=== PATIENT | male | born 1955 | race Caucasian/White ===

== ENCOUNTER 2019-10-31 13:10 | Observation (INO) | payer BC ==
[2019-10-31] MEDS ORDERED: Diltiazem 125 MG/25 ML ONE (14:16)
--- NOTE | 2019-10-31 16:15 | HP ---
PRIMARY CARE PHYSICIAN: Dr. Garrett. REASON FOR ADMISSION: Transferred from [facility] for new onset atrial fibrillation. HISTORY OF PRESENT ILLNESS: A 64-year-old male with no past medical history, who went to [facility] for preoperative checkup for left knee replacement, and during that checkup, the patient had EKG, which showed new onset atrial fibrillation. The patient was given metoprolol, and subsequently, he was transferred to our hospital. In the emergency room, his heart rate was in 130s and that is why he was given one dose of Cardizem, and after that, his heart rate was under control. As per report, initially, his heart rate was 144, and after metoprolol 5 mg, his heart rate was in 110s. He was also hypertensive. The patient does not have any nausea, vomiting, dizziness, chest pain, palpitation, shortness of breath, orthopnea, PND, leg swelling, or syncope. The patient denies any similar problem in the past. REVIEW OF SYSTEMS: CONSTITUTIONAL: Negative for weight loss or gain, ability to conduct usual activities. SKIN: Negative for rash, itching. EYES: Negative for double vision, pain. ENT/MOUTH: Negative for nose bleeding, neck stiffness, pain, tenderness. CARDIOVASCULAR: Negative for palpitations, dyspnea on exertion, orthopnea. RESPIRATORY: Negative for shortness of breath, wheezing, cough, hemoptysis, fever or night sweats. GASTROINTESTINAL: Negative for poor appetite, abdominal pain, heartburn, nausea, vomiting, constipation, or diarrhea. GENITOURINARY: Negative for urgency, frequency, dysuria, nocturia. MUSCULOSKELETAL: Negative for pain, swelling. NEUROLOGIC/PSYCHIATRIC: Negative for anxiety, depression. ALLERGY/IMMUNOLOGIC: Negative for skin rash, bleeding tendency. Please see my HPI for pertinent positives and negatives. All other review of systems reviewed and negative except as mentioned in HPI. PAST MEDICAL HISTORY: Reviewed and negative. PAST SURGICAL HISTORY: Knee replacement on the right side, appendicectomy when he was young, back surgery x2, and foot surgery. PAST PSYCHIATRIC HISTORY: Reviewed and negative. SOCIAL HISTORY: The patient drinks alcohol occasionally. He denies any smoking. He denies any other illicit drug abuse. FAMILY HISTORY: No strong family history of premature coronary artery disease, stroke, or cancer. ALLERGIES: NO KNOWN DRUG ALLERGY. EMERGENCY ROOM COURSE: The patient is given metoprolol 5 mg at the [facility] and Cardizem 20 mg IV push in our emergency room. PHYSICAL EXAMINATION: VITAL SIGNS: Currently, blood pressure 116/86, pulse 117 and irregular, respiratory rate 20, temperature 98.5, saturation 96% on room air, and weight 111.13. GENERAL: The patient is currently alert and oriented x3. HEENT: Head, normocephalic and atraumatic. Eyes, pupils are round and reactive to light. ENT, oropharynx within normal limits. Moist mucous membranes. NECK: Supple. No JVD. No meningeal signs of irritation. LUNGS: Clear to auscultation without any rhonchi or rales. CARDIAC: S1 and S2, irregularly irregular. No murmur. No gallop. No rub. ABDOMEN: Soft. Bowel sounds present. Nontender. Nondistended. No organomegaly. No mass. No peritoneal sign. BACK: Unremarkable. No CVA tenderness. EXTREMITIES: Upper extremities, passive movement of all joints are normal. Lower extremities, no edema. Good distal pulsation. No calf tenderness. SKIN: No skin rash. NEUROLOGIC: Nonfocal examination. PSYCHIATRIC: Normal affect. SIGNIFICANT LABORATORY DATA: EKG showing atrial fibrillation with RVR. Blood test report from [facility], I have reviewed and complete unremarkable. ASSESSMENT AND PLAN: 1. New onset atrial fibrillation with variable rate. At this point, Cardiology will be consulted. We will start Lovenox 1 mg/kg subcu twice daily. We will keep him n.p.o. after midnight. If the patient remains in persistently atrial fibrillation, then possibly he may need a transesophageal echocardiography and possible cardioversion. We will obtain echocardiography. We will do serial cardiac enzymes x3. We will check thyroid function test. We will continue with Cardizem p.o., and if heart rate gets very fast, then we will consider p.r.n. basis. 2. Osteoarthritis. The patient is planned for knee replacement on the left side next Monday. We will ask Cardiology to give preoperative clearance. 3. Deep venous thrombosis prophylaxis. The patient is already on full dose of Lovenox therapy. 4. Gastrointestinal prophylaxis. Pepcid 20 mg p.o. b.i.d. CODE STATUS: The patient is full code. The patient's is surrogate decision maker. DISPOSITION PLAN: Based on clinical course, within 24 to 48 hours. Based on Cardiology recommendation. Plan of care extensively discussed with the patient and family member at bedside in the emergency room and answered all their questions. Job ID: [id number]
[2019-10-31 17:17] LABS: Troponin I Less than 0.010 ng/mL (< 0.028)
[2019-10-31] MEDS ORDERED: Sodium Chloride 0.65% Nasal 44 ML BOT EA NARE PRN (17:44)
[2019-10-31] MEDS ORDERED: Loratadine 10 MG TAB PO PRN (17:44)
[2019-10-31] MEDS ORDERED: Ondansetron PF 4 MG/2 ML Vial IVP PRN (17:44)
[2019-10-31] MEDS ORDERED: Acetaminophen 325 MG TAB PO PRN (17:44)
[2019-10-31] MEDS ORDERED: Zolpidem Tartrate 5 MG TAB PO PRN (17:44)
[2019-10-31] MEDS ORDERED: Ondansetron ODT 4 MG TAB PO PRN (17:44)
[2019-10-31] MEDS ORDERED: Bisacodyl 10 MG SUPP PR PRN (17:44)
[2019-10-31] MEDS ORDERED: Senokot S 8.6-50 MG TAB PO PRN (17:44)
[2019-10-31] MEDS ORDERED: Labetalol HCl 100 MG/20 ML VIAL SLOW IVP PRN (17:44)
[2019-10-31] MEDS ORDERED: Loperamide HCl 2 MG CAP PO PRN (17:44)
[2019-10-31] MEDS ORDERED: Diltiazem 125 MG in Sodium Chloride 0.9% 100 ML IVPB PRN (17:44)
[2019-10-31] MEDS ORDERED: Calcium Carbonate 500 MG ChewTAB PO PRN (17:44)
[2019-10-31] MEDS ORDERED: HYDROcodone/Acetaminophen 5/325 mg Tablet PO PRN (17:44)
[2019-10-31] MEDS ORDERED: Guaifenesin DM 100-10/5 ML UDCUP PO PRN (17:44)
[2019-10-31] MEDS ORDERED: Cepastat Lozenges 1 LOZ PO PRN (17:44)
[2019-10-31] MEDS ORDERED: Diabetic Tussin 200 MG/10 ML UDCUP PO PRN (17:44)
[2019-10-31 17:49] VITALS: BMI 31.8
[2019-10-31 19:07] LABS: Troponin I Less than 0.010 ng/mL (< 0.028)
[2019-10-31 19:27] LABS: Bacteria/HPF None Seen HPF (None Seen); Bilirubin Negative (Negative); Blood, Urine Negative (Negative); Clarity Clear (Clear); Glucose, Urine (Dipstick) Normal (Negative); Leukocyte Negative Leu/uL (Negative); Nitrite Negative (Negative); Protein, Urine (Dipstick) Negative (Neg-Trace); RBC/HPF 0-3 HPF (0-3); Squamous Epithelial None Seen HPF (0-3); Urobilinogen Normal mg/dL (Less than 2); WBC/HPF 0-3 HPF (0-3)
[2019-10-31] MEDS: Famotidine 20 MG TAB PO SCH (20:10)
[2019-10-31] MEDS: Enoxaparin Sodium 120 MG/0.8 ML SYRINGE SC SCH (20:10)
[2019-11-01 05:59] LABS: ALT (SGPT) 26 U/L (8-55); AST (SGOT) 19 U/L (5-34); Albumin 3.6 g/dL (3.4-4.8); Alkaline Phosphatase 71 U/L (40-110); Anion Gap 14 mmol/L (10-20); BUN (Urea Nitrogen) 15 mg/dL (8.4-25.7); Bilirubin, Total 1.4 mg/dL (0.2-1.2); Calc. Creatinine Clearance 165 mL/min (70-130); Calcium 9.3 mg/dL (7.8-10.44); Carbon Dioxide 23 mmol/L (23-31); Cardiac Risk 2.8 (Less than 4.5); Chloride 106 mmol/L (98-107); Cholesterol 169 mg/dl (< 200 Desired); Estimated GFR-MDRD Greater than 90; Globulin 2.5 g/dL (2.4-3.5); Glucose 87 mg/dL (80-115); HDL Cholesterol 61 mg/dL (>60 Neg Risk); LDL Cholesterol, Calculated 73 mg/dL; Potassium 4.4 mmol/L (3.5-5.1); Protein, Total 6.1 g/dL (5.8-8.1); Sodium 139 mmol/L (136-145); Triglycerides 174 mg/dL (Less than 150)
[2019-11-01 06:22] LABS: #Basophils 0.1 thou/uL (0.0-0.2); #Eosinphils 0.2 thou/uL (0.0-0.7); #Lymphocytes 2.6 thou/uL (1.20-3.40); #Monocytes 1.1 thou/uL (0.11-0.59); #Neutrophils 4.3 thou/uL (1.40-6.50); %Basophils 0.9 % (0.0-1.0); %Eosinophils 2.9 % (0.0-10.0); %Lymphocytes 31.5 % (21.0-51.0); %Monocytes 12.9 % (0.0-10.0); %Neutrophils 51.8 % (42.0-75.0); Hemoglobin 14.8 g/dL (14.0-18.0); Mean Corpuscular HGB CONC 32.9 g/dL (32.0-36.0); Mean Corpuscular Hemoglobin 30.8 pg (27.0-31.0); Mean Corpuscular Volume 93.5 fL (78.0-98.0); Mean Platelet Volume 7.7 fL (7.4-10.4); Platelet Count 171 thou/uL (130-400); RBC Distribution Width 14.5 % (11.5-14.5); Red Blood Cell (RBC) Count 4.81 mill/uL (4.70-6.10); White Blood Cell (WBC) Count 8.2 thou/uL (4.8-10.8)
[2019-11-01] MEDS: Famotidine 20 MG TAB PO SCH (08:23)
[2019-11-01] MEDS: Enoxaparin Sodium 120 MG/0.8 ML SYRINGE SC SCH (09:00)
[2019-11-01] MEDS ORDERED: Aspirin 325 MG TAB PO SCH (09:00)
[2019-11-01] MEDS ORDERED: PROPOFOL 200 MG/20 ML VIAL ONE (11:19)
--- NOTE | 2019-11-01 11:22 | CON ---
DATE OF CONSULTATION: 11/01/2019 REASON FOR CONSULTATION: Newly diagnosed atrial fibrillation. HISTORY OF PRESENT ILLNESS: Mr. Cheek is a pleasant 64-year-old gentleman. The patient was going for preoperative evaluation for knee replacement. The patient was not aware of his heart racing, did not feel bad, was not short of breath or having chest pain, but the EKG showed an atrial fibrillation, rate of 140. He was referred to the emergency room. He has been brought in for observation. He had tentatively been scheduled for knee replacement next Monday. The patient has no cardiac history. No chest pain, pressure, heaviness, or squeezing. No history of hypertension. No history of coronary artery disease or vascular disease. REVIEW OF SYSTEMS: CONSTITUTIONAL: No significant weight gain or loss. VISION: No changes. HEARING: No changes. PULMONARY: No cough or wheezing. GASTROINTESTINAL: No nausea, vomiting, or diarrhea. SKIN: No rashes. NEUROLOGIC: No unilateral weakness or numbness. PSYCHIATRIC: No unusual depression or anxiety. PHYSICAL EXAMINATION: GENERAL: This is a pleasant 64-year-old man, resting comfortably, in no distress. VITAL SIGNS: Blood pressure 176/79, pulse 85 and irregular. LUNGS: Clear. CARDIAC: Irregularly irregular. ABDOMEN: Soft and nontender. EXTREMITIES: No clubbing or cyanosis. No edema. SKIN: Warm and dry. DIAGNOSTIC STUDIES: EKG did show atrial fibrillation with a rate of 140 beats per minute yesterday, now the rate is about 100. PERTINENT LABORATORY DATA: Bilirubin is 1.4. Triglyceride 174, cholesterol 169, and LDL 73. Potassium is 4.4. ASSESSMENT: 1. Atrial fibrillation with a rapid rate, now rate has improved. 2. Preoperative for knee surgery. PLAN: 1. The patient is on diltiazem for rate control. 2. He is on enoxaparin. 3. We are going to see if we could schedule a transesophageal echo and the cardioversion today. If that cannot be obtained, then we could rate control him and bring him back as an outpatient for the same procedure. Job ID: [id number]
--- NOTE | 2019-11-01 12:05 | PDOC.HOSPP ---
- Subjective Encounter Date: 11/01/19 Encounter Time: 08:30 Subjective: Patient seen and examined. No new complaints. No overnight events - Objective Vital Signs & Weight: Vital Signs (12 hours) Temp Pulse Resp BP Pulse Ox 11/01/19 11:30 97.8 F 76 18 126/64 95 11/01/19 07:58 97.7 F 85 18 176/79 H 97 11/01/19 03:12 97.7 F 116 H 13 135/71 97 Weight Weight 248 lb 1.6 oz I&O: 10/31/19 11/01/19 11/02/19 06:59 06:59 06:59 Intake Total 390 Output Total 350 Balance 40 Result Diagrams: 11/01/19 06:05 11/01/19 05:07 Radiology Reviewed by me: Yes EKG Reviewed by me: Yes Hospitalist ROS - Review of Systems ENT: denies: ear pain, ear discharge, nose pain, nose discharge, nose congestion , mouth pain, mouth swelling, throat pain, throat swelling, other Respiratory: denies: cough, dry, shortness of breath, hemoptysis, SOB with excertion, pleuritic pain, sputum, wheezing, other Cardiovascular: denies: chest pain, palpitations, orthopnea, paroxysmal noc. dyspnea, edema, light headedness, other Gastrointestinal: denies: nausea, vomiting, abdominal pain, diarrhea, constipation, melena, hematochezia, other Genitourinary: denies: dysuria, frequency, incontinence, hematuria, retention, other Musculoskeletal: denies: neck pain, shoulder pain, arm pain, back pain, hand pain, leg pain, foot pain, other - Medication Medications: Active Medications Generic Name Dose Route Start Last Admin Trade Name Hannah PRN Reason Stop Dose Admin Aspirin 325 mg 11/01/19 09:00 11/01/19 08:23 Aspirin PO 325 mg DAILY IRAIS Administration Diltiazem HCl 30 mg 10/31/19 21:00 11/01/19 10:38 Cardizem PO 30 mg ACHS IRAIS Administration Enoxaparin Sodium 110 mg 10/31/19 21:00 11/01/19 09:00 Lovenox SC Not Given 0900,2100 IRAIS Famotidine 20 mg 10/31/19 21:00 11/01/19 08:23 Pepcid PO 20 mg BID IRAIS Administration - Exam General Appearance: NAD, awake alert Eye: PERRL, anicteric sclera ENT: normocephalic atraumatic, no oropharyngeal lesions Neck: supple, symmetric, no JVD Heart: no murmur, no gallops, no rubs, irregular Respiratory: CTAB, no wheezes, no rales, no ronchi Gastrointestinal: soft, non-tender, non-distended, normal bowel sounds Extremities: no cyanosis, no clubbing Skin: normal turgor, no lesions Neurological: no focal deficits Musculoskeletal: normal tone, normal strength Psychiatric: normal affect, normal behavior Hosp A/P (1) New onset atrial fibrillation Code(s): I48.91 - UNSPECIFIED ATRIAL FIBRILLATION Status: Acute (2) Hypertension Code(s): I10 - ESSENTIAL (PRIMARY) HYPERTENSION Status: Acute Qualifiers: Hypertension type: essential hypertension Qualified Code(s): I10 - Essential (primary) hypertension (3) Obesity (BMI 30.0-34.9) Code(s): E66.9 - OBESITY, UNSPECIFIED Status: Chronic - Plan old records reviewed/req, plan discussed w/ family 11/01 cardiology consulted echo done possible cardioversion today continue cardizem and lovenox medication reviewed and continue to provide supportive care
--- NOTE | 2019-11-01 14:44 | OP ---
DATE OF PROCEDURE: 11/01/2019 PROCEDURE PERFORMED: Transesophageal echocardiogram. INDICATION: A 64-year-old gentleman with paroxysmal atrial fibrillation. DESCRIPTION OF PROCEDURE: The patient was taken to the PACU. The patient was sedated by Anesthesiology. A transesophageal probe was placed into the distal esophagus and stomach. Echocardiographic images were obtained. The transesophageal probe was removed. FINDINGS: 1. There appears to be a mild decrease in left ventricular systolic function. 2. Left atrial enlargement. 3. Normal mitral aortic valves. 4. Mild mitral regurgitation. 5. Mild tricuspid regurgitation. 6. No thrombus noted in left atrium or left atrial appendage. 7. Atherosclerotic debris in the descending aorta. IMPRESSION: No formed thrombus in the left atrium or left atrial appendage. Job ID: [id number]
[2019-11-01 16:01] VITALS: BP 122/69; TEMP 97.5
[2019-11-01] MEDS ORDERED: Apixaban 5 MG TAB PO SCH (21:00)
--- NOTE | 2019-11-01 21:07 | OP ---
DATE OF PROCEDURE: 11/01/19 SURGEON: Gaudencio Bernal M.D. PREOPERATIVE DIAGNOSIS: Atrial fibrillation with a rapid rate. PROCEDURE: Cardioversion. The patient is a pleasant 64-year-old gentleman brought to the Recovery Room in the fasting state. He was sedated by anesthesia and given 200 joules direct current synchronized energy and converted to s inus rhythm. CONCLUSIONS: Successful cardioversion.
--- NOTE | 2019-11-02 08:29 | DIS ---
DATE OF ADMISSION: 10/31/2019 DATE OF DISCHARGE: 11/01/2019 PRIMARY CARE PHYSICIAN: [facility] Call admission. DISCHARGE DISPOSITION: Home. PRIMARY DISCHARGE DIAGNOSES: 1. New onset atrial fibrillation. 2. Status post cardioversion converted to sinus rhythm. SECONDARY DISCHARGE DIAGNOSIS: Obesity with BMI 31. PRIMARY PROCEDURE/OPERATION: Cardioversion and transesophageal echocardiography. RADIOLOGICAL INVESTIGATION: Echocardiography showed EF 50% to 55%. SIGNIFICANT LABORATORY DATA: CBC, BMP, LFT normal. Cardiac enzyme negative. LDL 73. TSH 1.15. Urinalysis normal. DISCHARGE MEDICATION: 1. Eliquis 5 mg p.o. b.i.d. 2. Cardizem CD 180 mg p.o. daily. CONTRAINDICATION: None. CODE STATUS: Full code. 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 Bernal was following while in hospital. TEST RESULT PENDING ON DISCHARGE: None. ALLERGIES: PENICILLIN. DISCHARGE PLAN: Posthospital, the patient will follow up with primary care physician and Dr. Bernal in 1 or 2 weeks. HOSPITAL COURSE: A 64-year-old male who was scheduled for left total knee replacement and he had preoperative evaluation at [facility] where he had EKG done which showed atrial fibrillation. The patient was given metoprolol and subsequently, he was transferred to our hospital. The patient never had any atrial fibrillation in the past and he was completely asymptomatic. In our hospital, he was having a slightly high rate and that is why Cardizem bolus was given and subsequently p.o. Cardizem was started and on discharge we changed to Cardizem CD. The patient remained in atrial fibrillation and that is why patient underwent LULY and cardioversion and subsequently he converted to sinus rhythm. The patient is given anticoagulation while in hospital with Lovenox. On discharge, the patient is given Eliquis. The patient will make appointment with primary care physician. The patient will need to go home today. The patient is seen and examined at bedside today. Please see my progress note from that day for more detail. Job ID: [id number]
== END 2019-11-01 16:29 | disposition home or self-care (01) ==
LOC: ERS 13:10 → ERHOLD 16:24 → 2SW 17:49
PROVIDERS: ADMIT Internal Medicine; ATTEND Internal Medicine
PROC: B24BZZ4 Ultrasonography of Heart with Aorta, Transesophageal (ICD-10-PCS; principal; 2019-11-01)
PROC: 5A2204Z Restoration of Cardiac Rhythm, Single (ICD-10-PCS; 2019-11-01)
DX: I48.0 Paroxysmal atrial fibrillation (principal); I08.1 Rheumatic disorders of both mitral and tricuspid valves; I70.0 Atherosclerosis of aorta; I10 Essential (primary) hypertension; M17.12 Unilateral primary osteoarthritis, left knee; E66.9 Obesity, unspecified; Z68.31 Body mass index [BMI] 31.0-31.9, adult; Z88.0 Allergy status to penicillin; Z96.651 Presence of right artificial knee joint
CPT/HCPCS: 36415; 80053; 80061; 81001; 84443; 84484; 85025; 92960; 93005; 93306; 93312; 96372; 96374; G0378; J1650; J2704

== ENCOUNTER 2020-09-07 08:57 | Outpatient (CLI) | payer BC, OTHER ==
[2020-09-07 16:54] LABS: #Basophils 0.1 thou/uL (0.0-0.2); #Eosinphils 0.3 thou/uL (0.0-0.7); #Lymphocytes 2.5 thou/uL (1.20-3.40); #Monocytes 1.1 thou/uL (0.11-0.59); #Neutrophils 4.4 thou/uL (1.40-6.50); %Basophils 1.1 % (0.0-1.0); %Eosinophils 3.3 % (0.0-10.0); %Lymphocytes 29.7 % (21.0-51.0); %Monocytes 13.2 % (0.0-10.0); %Neutrophils 52.7 % (42.0-75.0); Hemoglobin 15.4 g/dL (14.0-18.0); Mean Corpuscular HGB CONC 33.4 g/dL (32.0-36.0); Mean Corpuscular Hemoglobin 32.6 pg (27.0-31.0); Mean Corpuscular Volume 97.7 fL (78.0-98.0); Mean Platelet Volume 8.2 fL (7.4-10.4); Platelet Count 217 thou/uL (130-400); RBC Distribution Width 13.3 % (11.5-14.5); Red Blood Cell (RBC) Count 4.72 mill/uL (4.70-6.10); White Blood Cell (WBC) Count 8.3 thou/uL (4.8-10.8)
[2020-09-07 18:10] LABS: Anion Gap 15 mmol/L (10-20); BUN (Urea Nitrogen) 11 mg/dL (8.4-25.7); Calc. Creatinine Clearance 0 mL/min (70-130); Calcium 8.8 mg/dL (7.8-10.44); Carbon Dioxide 21 mmol/L (23-31); Chloride 105 mmol/L (98-107); Estimated GFR-MDRD Greater than 90; Glucose 69 mg/dL (80-115); Potassium 4.1 mmol/L (3.5-5.1); Sodium 137 mmol/L (136-145)
[2020-09-09 12:10] LABS: SARS-CoV-2 MS2 Positive; SARS-CoV-2 N Gene Negative; SARS-CoV-2 S Gene Negative; SARS-CoV-2 by NAA Not Detected (NotDetected); SARS-CoV-2 orf1ab Negative
== END 2020-09-07 08:58 | disposition home or self-care (01) ==
LOC: LABBT 08:57
PROVIDERS: ATTEND Internal Medicine Cardiovascular Disease
DX: Z01.812 Encounter for preprocedural laboratory examination (principal); I48.91 Unspecified atrial fibrillation; Z20.828 Contact with and (suspected) exposure to other viral communicable diseases
CPT/HCPCS: 80048; 85025; 87635; U0003

== ENCOUNTER 2020-09-10 09:47 | Day surgery (SDC) | payer BC ==
[2020-09-10] MEDS ORDERED: Lidocaine 1% PF 5 ML VIAL ONE (11:39)
[2020-09-10] MEDS ORDERED: PROPOFOL 20 ML ONE (11:39)
[2020-09-10] MEDS ORDERED: Flecainide 50 MG TAB PO SCH (12:15)
--- NOTE | 2020-09-11 13:57 | CCLSPC ---
PROCEDURE: Cardioversion, external. PROCEDURE IN DETAIL: The patient was brought to the recovery room in a fasting state. He was sedated by anesthesia. He was given 200 joules direct current synchronized energy and converted to sinus rhythm. INDICATION: Persistent atrial fibrillation, symptomatic. CONCLUSION: Successful cardioversion. COMPLICATIONS: None. Job ID: [id number]
== END 2020-09-10 12:58 | disposition home or self-care (01) ==
LOC: CCL 09:47
PROVIDERS: ATTEND Internal Medicine Cardiovascular Disease
PROC: 5A2204Z Restoration of Cardiac Rhythm, Single (ICD-10-PCS; principal; 2020-09-10)
DX: I48.19 Other persistent atrial fibrillation (principal); I11.0 Hypertensive heart disease with heart failure; I50.22 Chronic systolic (congestive) heart failure; E78.2 Mixed hyperlipidemia; Z79.01 Long term (current) use of anticoagulants; Z79.899 Other long term (current) drug therapy; Z88.0 Allergy status to penicillin; Z82.49 Family history of ischemic heart disease and other diseases of the circulatory system
CPT/HCPCS: 92960; J2704

== ENCOUNTER 2021-07-20 10:55 | Outpatient (CLI) | payer BC ==
[2021-07-20 12:20] LABS: Hemoglobin 14.4 g/dL (13.5-17.5); Mean Corpuscular HGB CONC 33.8 g/dL (32.0-36.0); Mean Corpuscular Hemoglobin 31.6 pg (27.0-33.0); Mean Corpuscular Volume 93.6 fl (81.2-95.1); Mean Platelet Volume 10.3 fl (7.4-10.4); Platelet Count 187 10x3/uL (150-450); RBC Distribution Width 13.6 % (11.5-14.5); Red Blood Cell (RBC) Count 4.55 10x6/uL (4.32-5.72); White Blood Cell (WBC) Count 9.1 10x3/uL (3.5-10.5)
[2021-07-20 12:44] LABS: Anion Gap 16 mmol/L (10-20); BUN (Urea Nitrogen) 13 mg/dL (8.4-25.7); Calc. Creatinine Clearance 0 mL/min (70-130); Calcium 9.5 mg/dL (7.8-10.44); Carbon Dioxide 22 mmol/L (23-31); Chloride 104 mmol/L (98-107); Glucose 96 mg/dL (80-115); Potassium 4.7 mmol/L (3.5-5.1); Sodium 137 mmol/L (136-145)
[2021-07-21 02:05] LABS: SARS-CoV-2 PCR by NAA Not Detected (NotDetected)
== END 2021-07-20 10:56 | disposition home or self-care (01) ==
LOC: LABBT 10:55
PROVIDERS: ATTEND Neurological Surgery
DX: Z01.812 Encounter for preprocedural laboratory examination (principal); M48.061 Spinal stenosis, lumbar region without neurogenic claudication; Z20.822 Contact with and (suspected) exposure to COVID-19
CPT/HCPCS: 80048; 85027; U0003; U0005

== ENCOUNTER 2021-07-23 06:59 | Day surgery (SDC) | payer BC ==
[2021-07-22 12:50] VITALS: BMI 31.8
[2021-07-23] MEDS ORDERED: ceFAZolin 2 GM/Dextrose 50 ML IVPB ONE (07:23)
[2021-07-23] MEDS ORDERED: Clindamycin/D5W 900 mg/50 ml Premix Bag ONE (08:04)
[2021-07-23] MEDS ORDERED: Levofloxacin 500 mg/D5W 100 ml Premix Bag ONE (08:04)
[2021-07-23] MEDS ORDERED: EPINEPHrine 1 MG/ML AMP ONE (08:33)
[2021-07-23] MEDS ORDERED: Bupivacaine PF 0.5% 30 ML VIAL ONE (08:33)
[2021-07-23] MEDS ORDERED: Fentanyl 100 MCG/2 ML VIAL ONE ×3 (08:51→11:00)
[2021-07-23] MEDS ORDERED: Ketorolac Tromethamine 30 MG/ML VIAL ONE (08:53)
[2021-07-23] MEDS ORDERED: Ondansetron PF 4 MG/2 ML Vial ONE ×2 (08:53→15:01)
[2021-07-23] MEDS ORDERED: Lidocaine 1% PF 5 ML VIAL ONE (08:53)
[2021-07-23] MEDS ORDERED: PROPOFOL 200 MG/20 ML VIAL ONE (08:53)
[2021-07-23] MEDS ORDERED: Glycopyrrolate 0.2 MG/ML 5 ML SYRINGE ONE (08:53)
[2021-07-23] MEDS ORDERED: PHENYLEPHRINE-NS 100 MCG/ML 10 ML SYRINGE ONE (08:53)
[2021-07-23] MEDS ORDERED: Rocuronium Bromide 10 MG/ML (10ML VIAL) ONE (08:53)
[2021-07-23] MEDS ORDERED: Dexamethasone 20 MG/5 ML VIAL ONE (08:53)
[2021-07-23] MEDS ORDERED: Tamsulosin HCl 0.4 MG CAP ONE (11:00)
[2021-07-23] MEDS ORDERED: Cyclobenzaprine 10 MG TAB ONE (15:58)
== END 2021-07-23 17:50 | disposition home or self-care (01) ==
LOC: SDC 06:59
PROVIDERS: ATTEND Neurological Surgery
PROC: 01NB0ZZ Release Lumbar Nerve, Open Approach (ICD-10-PCS; principal; 2021-07-23)
DX: M48.062 Spinal stenosis, lumbar region with neurogenic claudication (principal); M54.16 Radiculopathy, lumbar region; G89.4 Chronic pain syndrome; M19.90 Unspecified osteoarthritis, unspecified site; M10.9 Gout, unspecified; I10 Essential (primary) hypertension; Z79.01 Long term (current) use of anticoagulants; Z79.899 Other long term (current) drug therapy; Z88.0 Allergy status to penicillin
CPT/HCPCS: 76000; J0171; J0690; J1100; J1885; J1956; J2405; J2704; J3010; J3490; S0020